=== PATIENT | male | born 1965 | race Caucasian/White ===

== ENCOUNTER 2016-10-05 14:06 | Emergency (ER) | payer BC ==
[2016-10-05] MEDS ORDERED: Cyclobenzaprine TAB* 10 MG PO ONE (14:32)
--- NOTE | 2016-10-05 14:59 | ED ---
Lower Extremity - HPI Summary HPI Summary: Patient arrives to ED after a fall skydiving, landing on his right knee and rolling. He states he may have fallen from approximately 10ft. He denies LOC or head injury. He states he feels OK other than his right lateral quadricep which is having muscle spasms. He feels he may have torn the muscle. He does not have pain in the knee, hips, contralateral leg or chest pain. Denies neck pain and back pain. Denies heel or other foot pain. Patient is otherwise healthy and takes no medications. EMT were called to the scene and treated appropriately. He has not been ambulatory since the fall stating there is too much pain in his right thigh. Patient denies other pain. Patient denies blood thinners. - History of Current Complaint Chief Complaint: EDExtremityLower Stated Complaint: RT LEG INJURY Time Seen by Provider: 10/05/16 14:18 Hx Obtained From: Patient Mechanism Of Injury: Fall From Height Of: - 10ft Onset of Pain: Immediate Onset/Duration: Minutes Severity Initially: Moderate Severity Currently: Moderate Pain Intensity: 4 Pain Scale Used: 0-10 Numeric Timing: Constant Location: Is Discrete @ - right lateral quadricep Character Of Pain: Dull, Aching Associated Signs And Symptoms: Positive: Swelling - right lateral quad Aggravating Factor(s): Standing, Ambulation, Movement, Weight Bearing Alleviating Factor(s): Rest Able to Bear Weight: No - Risk Factors Gout Risk Factors: Age Over 40 DVT Risk Factors: Negative Septic Arthritis Risk Factor: Negative - Allergies/Home Medications Allergies/Adverse Reactions: Allergies Allergy/AdvReac Type Severity Reaction Status Date / Time No Known Allergies Allergy Verified 10/05/16 15:23 PMH/Surg Hx/FS Hx/Imm Hx Previously Healthy: Yes - Cancer History Hx Hematologic Symptoms: No Hx Chemotherapy: No Hx Radiation Therapy: No Hx Palliative Cancer Treatment: No - Surgical History Hx Anesthesia Reactions: No - Immunization History Hx Pertussis Vaccination: Yes Immunizations Up to Date: Yes Infectious Disease History: No Infectious Disease History: Denies: Traveled Outside the [place] in Last 30 Days - Social History Occupation: Employed Full-time Lives: With Family Alcohol Use: Occasionally Hx Substance Use: No Substance Use Type: Reports: None Hx Tobacco Use: No Smoking Status (MU): Never Smoked Tobacco Do You Chew or Dip Tobacco: No Have You Chewed or Dipped Tobacco in the LAST YEAR: No Review of Systems Constitutional: Negative Eyes: Negative ENT: Negative Cardiovascular: Negative Respiratory: Negative Positive: no symptoms reported, see HPI Positive: Arthralgia, Myalgia - right upper thigh - lateral pain Positive: Other - swelling over right lateral thigh, no ecchymosis noted Neurological: Negative Psychological: Normal All Other Systems Reviewed And Are Negative: Yes Physical Exam Triage Information Reviewed: Yes Vital Signs On Initial Exam: Initial Vitals Temp Pulse Resp BP Pulse Ox 97.5 F 88 24 141/70 99 10/05/16 14:07 10/05/16 14:07 10/05/16 14:07 10/05/16 14:07 10/05/16 14:07 Vital Signs Reviewed: Yes Appearance: Positive: Well-Appearing, No Pain Distress, Well-Nourished Skin: Positive: Warm, Skin Color Reflects Adequate Perfusion Head/Face: Positive: Normal Head/Face Inspection Eyes: Positive: EOMI, JONNY, Conjunctiva Clear Neck: Positive: Supple, No Lymphadenopathy Respiratory/Lung Sounds: Positive: Clear to Auscultation, Breath Sounds Present Cardiovascular: Positive: Normal, RRR Musculoskeletal: Positive: Pain @ - right lateral thigh, Other - ROM, and strength limited on right side Neurological: Positive: Sensory/Motor Intact, Alert, Oriented to Person Place, Time, Speech Normal Psychiatric: Positive: Normal AVPU Assessment: Alert - Meet Coma Scale Best Eye Response: 4 - Spontaneous Best Motor Response: 6 - Obeys Commands Best Verbal Response: 5 - Oriented Diagnostics - Vital Signs Vital Signs Temp Pulse Resp BP Pulse Ox 10/05/16 14:07 97.5 F 88 24 141/70 99 - Laboratory Lab Statement: Any lab studies that have been ordered have been reviewed, and results considered in the medical decision making process. Lower Extremity Course/Dx - Course Course Of Treatment: Patient sent to xray for hip right, femur right, and chest xray. Images sent to [facility]. Images of fractured femur sent to Dr. Donnelly, outside production inspector ortho, who stated patient must be sent to trauma center. Patient given 8mg morphine, 4mg zofran, 10mg flexeril. Patient tolerating well. OK to be sent to [facility]. [facility] called at 3:15pm, spoke with Dr. Brown in the ED who accepted patient for transfer. [place] [facility] OK to transport. Sedation with patient is 8mg morphine. PRN 8mg morphine for transfer orders. Consulted with Dr. Shanika Fish. Complex comminuted intertrochanteric fracture of the right hip with superior. dislocation of the femoral head. There may be shearing injury of the right femoral head as. well. IMPRESSION: No active cardiopulmonary disease is noted. Assessment/Plan: Transfer to [facility] - Diagnoses Differential Diagnosis/HQI/PQRI: Positive: Fracture (Closed), Fracture (Open), Sprain, Strain Provider Diagnoses: Intertrochanteric fracture of femur - Physician Notifications Instructed by Provider To: Transfer Reason For Transfer: Patient not appropriate for [facility]. Discharge - Discharge Plan Condition: Stable Disposition: TRANS HIGHER LVL OF CARE FAC
[2016-10-05] MEDS ORDERED: Morphine INJ* 2 MG/ML 1 ML SYRINGE IV ONE ×2 (15:14→15:50)
[2016-10-05] MEDS ORDERED: Ondansetron INJ* 2 MG/ML VIAL IV ONE (15:28)
--- NOTE | 2016-10-05 15:38 | RAD ---
Indication: Hip fracture preop. Single view of the chest demonstrates no mediastinal shift. Hyperinflated lung durán are noted. No pleural fluid, pneumonia or pneumothorax is noted. IMPRESSION: No active cardiopulmonary disease is noted.
[2016-10-05 15:39] VITALS: BP 111/77
--- NOTE | 2016-10-05 15:39 | RAD ---
Indication: Hip injury after fall. Single view of the right hip demonstrates intertrochanteric fracture of the right hip. There is superior dislocation of the right humeral head. Complex angulation is noted. Additionally there may be shearing of the femoral head with most of the femoral head dislocated superiorly. IMPRESSION: Complex comminuted intertrochanteric fracture of the right hip with superior dislocation of the femoral head. There may be shearing injury of the right femoral head as well.
--- NOTE | 2016-10-05 15:42 | RAD ---
Indication: Right femur injury. Single view of the right femur demonstrates a comminuted intertrochanteric fracture of the right hip. Remainder of the femur is intact. IMPRESSION: Intertrochanteric comminuted fracture of the right proximal femur. There is superior dislocation of the hip.
[2016-10-05] MEDS ORDERED: HYDROcodone/ACETAMIN 5-325 MG* 1 TAB PO ONE (15:47)
--- NOTE | 2016-10-05 16:30 | RAD ---
Indication: Right hip injury Single view the pelvis demonstrates comminuted intertrochanteric fracture of the right hip. The pelvic ring is otherwise unremarkable. IMPRESSION: Comminuted trochanteric fracture right hip with displacement and fracture of the femoral head.
== END 2016-10-05 15:17 | disposition short-term general hospital (02) ==
LOC: ED 14:06
DX: S72.101A Unspecified trochanteric fracture of right femur, initial encounter for closed fracture (principal); W19.XXXA Unspecified fall, initial encounter; Y93.89 Activity, other specified; Y92.9 Unspecified place or not applicable
CPT/HCPCS: 71010; 72170; 96374; 96375; 99284; A9270-GY; J2270; J2405